=== PATIENT | female | born 1995 | race Caucasian/White ===

== ENCOUNTER 2023-09-17 22:13 | Emergency (ER) | payer SELFPAY ==
[~2023-09-17] VITALS: Ht 149.9 cm; Wt 64.0 kg
[2023-09-17 22:15] VITALS: O2SAT 100
[2023-09-18] MEDS ORDERED: LIDOCAINE HCL/PF 1% 10 MG/ML 5ML VIAL INFIL ONE (00:30)
[2023-09-18] MEDS ORDERED: BACITRACIN ZINC OINT UDPKT TOP ONE (00:30)
[2023-09-18] MEDS: KETOROLAC 15MG/ML VIAL IM ONE (01:13)
[2023-09-18] MEDS ORDERED: AMOX1TAB16 MT (01:59)
[2023-09-18] MEDS ORDERED: NAPR-1176 MT (02:00)
[2023-09-18] MEDS ORDERED: BACITRACIN 14GM TUBE TOP ONE (02:30)
[2023-09-18 02:42] VITALS: BP 146/87; PULSE 89; RESP 20; TEMP 98.9
== END 2023-09-18 02:46 | disposition home or self-care (01) ==
LOC: ER 22:13
DX: S51.831A Puncture wound without foreign body of right forearm, initial encounter (principal); W54.0XXA Bitten by dog, initial encounter; Y93.89 Activity, other specified; Y92.89 Other specified places as the place of occurrence of the external cause; Y99.8 Other external cause status
CPT/HCPCS: 73090; 73110; 99284; 81025; 12005; 96372; J1885; J3490; Z7610

== ENCOUNTER 2023-09-20 17:35 | Emergency (ER) | payer SELFPAY ==
[~2023-09-20] VITALS: Ht 152.4 cm; Wt 77.0 kg
[~2023-09-20 17:35] MED LIST: AMOX1TAB16 MT; NAPR-1176 MT
[2023-09-20 17:43] VITALS: O2SAT 100
[2023-09-20 18:44] VITALS: BP 117/68; PULSE 89; RESP 18; TEMP 98.7
== END 2023-09-20 19:25 | disposition home or self-care (01) ==
LOC: ER 17:44
DX: S51.811D Laceration without foreign body of right forearm, subsequent encounter (principal); X58.XXXD Exposure to other specified factors, subsequent encounter
CPT/HCPCS: 99281; Z7610 ×2

== ENCOUNTER 2023-10-01 13:59 | Emergency (ER) | payer SELFPAY ==
[~2023-10-01] VITALS: Ht 152.4 cm; Wt 84.8 kg
[2023-10-01 14:08] VITALS: TEMP 97.8; O2SAT 99
[2023-10-01 18:06] VITALS: BP 127/67; PULSE 70; RESP 15
== END 2023-10-01 18:07 | disposition home or self-care (01) ==
LOC: ER 13:59
DX: S51.811D Laceration without foreign body of right forearm, subsequent encounter (principal); X58.XXXD Exposure to other specified factors, subsequent encounter
CPT/HCPCS: 99281